=== PATIENT | male | born 1945 | race Caucasian/White ===

== ENCOUNTER → 2016-12-21 | Outpatient (CLI) | payer MEDICARE ==
[~2016-12-21] MED LIST: AMLO5TAB2 PO; ASPI325T PO; BISO5TAB2 PO; LEVO150T7 PO; LEVO200T4 PO; ZIAC10TA PO
--- NOTE | 2016-12-21 13:00 | ECGEPIP ---
Stationary ECG Study [facility] Test Date: 2016-12-21 Pat Name: REYMUNDO PEARL Department: Room: - Gender: M Truck Technician: : [id number] Requested By: BRENNA Jha Order Number: [id number] Reading MD: Jael Orozco Measurements Intervals [place] Rate: 61 P: 40 SC: 196 QRS: 28 QRSD: 94 T: 48 QT: 375 QTc: 380 Interpretive Statements SINUS RHYTHM Left atrial enlargement ANTERIOR STTCHANGES HAVE IMPROVED SOME C/W 04/23/[address]SO WITH INFER[address] ABN IMPROVED Electronically Signed On 12-21-2016 12:59:46 EDT by Jael Orozco
== END ==
LOC: M EKG 09:41
PROVIDERS: ATTEND Anesthesiology
DX: Z01.818 Encounter for other preprocedural examination (principal); I10 Essential (primary) hypertension

== ENCOUNTER → 2016-12-30 | Day surgery (SDC) | payer MEDICARE ==
[~2016-12-30] VITALS: Ht 180.3 cm; Wt 103.4 kg
[~2016-12-30] MED LIST changes: +LIDOCAINE 2% INJ 100 MG/5 ML SDV (FOR ANES.) As Ordered ONE; +LR 1,000 ML IV SCH; +METOCLOPRAMIDE INJ 10MG/2ML VIAL (J2765) IV PRN; +MIDAZOLAM INJ 2 MG/2 ML VIAL (J2250) As Ordered ONE; +MORPHINE 2 MG/ML 1ML SYRINGE IV PRN; +ONDANSETRON 4MG/2ML VIAL (J2405) As Ordered ONE; +ONDANSETRON 4MG/2ML VIAL (J2405) IV PRN; +PERCOCET 5MG/325MG TAB PO PRN; +PHENYLephrine HCL 500 MCG/5 ML (100MCG/ML) SYRINGE (J2370) As Ordered ONE; +PROPOFOL 200 MG/20 ML VIAL As Ordered ONE; +ceFAZolin 1GM INJ (J0690) As Ordered ONE; +ePHEDrine SULFATE 25 MG/5 ML(5MG/ML) SYRINGE As Ordered ONE; +fentaNYL 100 MCG/2 ML INJECTION (J3010) As Ordered ONE; +fentaNYL 100 MCG/2 ML INJECTION (J3010) IV PRN
--- NOTE | 2016-12-30 12:02 | REP ---
Left ankle intraoperative fluoroscopic views, two views: Two intraoperative fluoroscopic views are performed during a surgical fusion of the left ankle. Two orthopedic screws are seen across the tibiotalar articulation in satisfactory positions alignment on both views. There is joint space narrowing of the tibiotalar joint. Fluoroscopic exposure time is 1 minute 26 seconds. Fluoroscopic images are performed with last image hold technology. These images require no additional radiation. Signed by Stan Gee MD 12/30/2016 11:53 A
[2016-12-30 14:45] VITALS: BP 120/66
--- NOTE | 2016-12-31 13:59 | RO ---
DATE OF PROCEDURE: 12/30/2016 PREPROCEDURE DIAGNOSIS: Left ankle degenerative arthritis. POSTPROCEDURE DIAGNOSIS: Left ankle degenerative arthritis. PROCEDURE: Left ankle arthroscopic fusion. SURGEON: Dr. Chirag Alvarado VETERINARY TOXICOLOGIST: Mr. Zana Verduzco ANESTHESIA: Spinal with IV sedation. COMPLICATIONS: None. PROCEDURE: Antibiotics were given intravenously preoperatively and then a successful spinal anesthetic was induced. Tourniquet was placed on the left upper thigh and not inflated. Then the left lower extremity was carefully prepped and draped in the usual sterile fashion. A well leg valencia was utilized. After appropriate time out, I began the procedure by applying the ankle strap and then a Kerlix wrap around my waist for waist distraction. Small schultz were made at the anterior joint line medially and laterally. Then a small #11 blade was used just to incise the skin superficially, and then a hemostat utilized to spread the tissues so that it could enter the joint anteromedially. At first we had some difficulty getting into the joint, it was a very tight space, very arthritic ankle. Eventually, I was able to modify my portal to a distal position and was able to enter the joint. I then established an anterolateral portal again by making a small incision with an #11 blade, first localizing with a small 20-gauge needle, then spread with a hemostat. The scope was then placed through the anterolateral portal and we began working first with a shaver medially through the medial portal, debriding some synovitis. There was just a small amount of articular cartilage remaining throughout the entire joint, both on the tibial plafond and the tailor dome. It is denuded almost completely of articular cartilage except the far posterior aspect of the joint and the medial and lateral gutters. I first used the shaver to debride the synovium and any other debris. Some small ossific loose bodies were removed with the grasping forceps. Then I first worked along the medial gutter by using a combination of ring curettes, curved curettes, and the oval bur to debride the medial gutter and then the tibial plafond all the way posteriorly and then laterally, and then worked on the talar dome, again in a similar fashion, first in the medial gutter, then posteriorly, and then over laterally. His bone was very sclerotic and it was difficult to get bleeding bone despite using the bur even. Thus, I felt it best to do several microfracture type pick holes on both the tibial plafond and the talar dome, so I used the arthroscopy picks to make several pick holes in the tibial plafond and on the talar neck. Photographs were taken. Once I was satisfied that all the articular cartilage surface was removed and the medial gutter cleared, as well as the medial aspect of the distal fibula was cleared of any articular cartilage, I then brought in the fluoroscopic imaging and estimated a position for our first screw, which was going to be superior and medial. Once I was satisfied with the trajectory, I made a small pancho in the skin, spread with a hemostat, introduced the threaded guidepin from the cannulated screw set and drilled from medial superior to distal lateral into the talar, so it came out about the center portion of the talar dome. I did this and as the threaded guidepin crossed the ankle joint, I made sure that we estimated as best as possible that the ankle was in about neutral with slight external rotation and slight eversion alignment. Then the pin was driven across, measured, and then I drilled the near cortex and then introduced the short threaded 7.3 mm cannulated screws with excellent bite into the bone. This was a very good rock solid screw. I initially planned to put two medial parallel screws in, but I decided that there was not enough room unless I did a crisscross pattern. Thus, at this point, I made a small incision lateral, just in front of the fibula with an #11 blade, spread with a hemostat, and I introduced the threaded guide pin just over the anterior aspect of the fibula into the tibia. Then under fluoroscopic imaging, I drilled across trying to get as close as I could to what they call a home run screw, meeting down into the talar neck. Eventually, I was able to secure the threaded guide pin into the talar neck across the ankle joint, and then I drilled and placed a screw; however, it was so close to the other screw that it would not advance and I had to back the screw out and reposition the threaded guide pin more superiorly and then advanced again down the talar neck. This time, I avoided the other screw. Once I was satisfied with its position, I measured, drilled, and the bone was so sclerotic on the talus so I actually had to drill into the talus with a drill and then place the short threaded 7.3 cannulated screw with excellent bite and purchase once again. Fluoroscopic imaging in the AP, lateral and mortise planes showed that we appeared to have good position of the ankle and good position of the hardware. The tourniquet was released around this time and then I reintroduced the arthroscope into the joint. It was nicely coapted together and I introduced 5 mL of DBX bone graft through the anteromedial portal, visualizing anterolaterally, and then squirted it in through the cannula into the anterior aspect of the joint and applied pressure anteriorly to compress the bone graft material around the ankle joint. The wounds were then closed with #4-0 nylon sutures, covered by Adaptic dry, sterile, bulky dressing with a short leg, well padded, plaster cast applied. He was then transferred to the recovery room in stable condition. There were no intraoperative complications. Mr. Verduzco was critical to the success of this difficult operation, which took several hours to get everything lined up just the way we would like and helped to manipulate the knee, helped to handle the instruments, helped to place the cast, closed the wound, and prepared the patient, amongst many other tasks.
== END | disposition home or self-care (01) ==
LOC: M SDC 05:42
PROVIDERS: ATTEND Orthopaedic Surgery
DX: M19.072 Primary osteoarthritis, left ankle and foot (principal); I10 Essential (primary) hypertension; E03.9 Hypothyroidism, unspecified; T88.3XXD Malignant hyperthermia due to anesthesia, subsequent encounter; K44.9 Diaphragmatic hernia without obstruction or gangrene; Z88.8 Allergy status to other drugs, medicaments and biological substances; Z79.899 Other long term (current) drug therapy
CPT/HCPCS: 29899; 73610; 88304; C1762; C1776; J0690; J2250; J2370; J2405; J3010

== ENCOUNTER 2017-05-10 07:44 | Inpatient (IN) | payer MEDICARE ==
[~2017-05-10] VITALS: Ht 177.8 cm; Wt 105.0 kg
[~2017-05-10 07:44] MED LIST changes: -LIDOCAINE 2% INJ 100 MG/5 ML SDV (FOR ANES.) As Ordered ONE; -LR 1,000 ML IV SCH; -METOCLOPRAMIDE INJ 10MG/2ML VIAL (J2765) IV PRN; -MIDAZOLAM INJ 2 MG/2 ML VIAL (J2250) As Ordered ONE; -MORPHINE 2 MG/ML 1ML SYRINGE IV PRN; -ONDANSETRON 4MG/2ML VIAL (J2405) As Ordered ONE; -ONDANSETRON 4MG/2ML VIAL (J2405) IV PRN; -PERCOCET 5MG/325MG TAB PO PRN; -PHENYLephrine HCL 500 MCG/5 ML (100MCG/ML) SYRINGE (J2370) As Ordered ONE; -PROPOFOL 200 MG/20 ML VIAL As Ordered ONE; -ceFAZolin 1GM INJ (J0690) As Ordered ONE; -ePHEDrine SULFATE 25 MG/5 ML(5MG/ML) SYRINGE As Ordered ONE; -fentaNYL 100 MCG/2 ML INJECTION (J3010) As Ordered ONE; -fentaNYL 100 MCG/2 ML INJECTION (J3010) IV PRN
[2017-05-10] MEDS ORDERED: NS 1,000 ML IV SCH (08:25)
[2017-05-10] MEDS ORDERED: ONDANSETRON 4MG/2ML VIAL (J2405) IV ONE (08:30)
[2017-05-10] MEDS ORDERED: MORPHINE 4 MG/ML 1ML SYRINGE IV PRN ×2 (08:30→19:15)
[2017-05-10 08:41] LABS: BASO % 0.3 % (0.0-1.0); EOS % 0.1 % (0.0-3.0); IMMATURE GRANULOCYTE % 0.4 % (0-0); LYMPH # 0.6 10^3/uL (1.5-4.5); LYMPH % 4.5 % (24.0-44.0); MEAN CORPUSCULAR HEMOGLOBIN 30.9 pg (27.0-33.0); MEAN CORPUSCULAR HGB CONC 34.3 g/dl (32.0-36.5); MEAN CORPUSCULAR VOLUME 90.1 fl (80.0-96.0); MONO # 0.7 10^3/uL (0.0-0.8); MONO % 4.9 % (0.0-5.0); NEUTROPHILS # 11.9 10^3/uL (1.8-7.7); NEUTROPHILS % 89.8 % (36.0-66.0); PLATELET COUNT, AUTOMATED 182 10^3/uL (150-450); WHITE BLOOD COUNT 13.2 10^3/uL (4.0-10.0)
[2017-05-10 08:51] LABS: ADD MANUAL DIFFER NO; DIFF SLIDE NUMBER 121
--- NOTE | 2017-05-10 08:57 | REP ---
Acute abdominal series series including PA chest and supine upright abdomen: PA chest: Comparison is 04/23/2016. Lung amaya are clear and unchanged. Cardiac size is upper normal, unchanged. The comfort, mediastinum, and bony thorax are unremarkable. There is no free subdiaphragmatic air. Impression: Essentially negative PA chest. There is no interval change. Abdomen, supine upright views: The multiple air-fluid levels identified in nondilated bowel loops on the previous upright view have resolved. The bowel gas pattern is now normal. There are no calcifications. Skeletal structures and soft tissues are otherwise unremarkable. There is degenerative disc disease and scoliosis of the lumbar spine, unchanged. Impression: Normal bowel gas pattern. Signed by Stan Gee MD 05/10/2017 08:48 A
[2017-05-10 09:04] LABS: ALBUMIN 3.6 GM/DL (3.2-5.2); ALBUMIN/GLOBULIN RATIO 0.82 (1.00-1.93); BILIRUBIN,DIRECT 0.2 MG/DL (0.0-0.2); BILIRUBIN,TOTAL 0.7 MG/DL (0.2-1.0); CALCIUM LEVEL 9.2 MG/DL (8.8-10.2); CREATININE FOR GFR 1.58 MG/DL (0.70-1.30); GLOMERULAR FILTRATION RATE 46.1 (>42); POTASSIUM SERUM 3.6 MEQ/L (3.5-5.1)
[2017-05-10] MEDS ORDERED: PIPERACILLIN/TAZOBACTAM SOD 3.375 GM in D5W 50 ML IV ONE (09:30)
[2017-05-10] MEDS ORDERED: GASTROGRAFIN SOLUTION 30ML (Q9963) As Ordered ONE (09:31)
[2017-05-10] MEDS ORDERED: GASTROGRAFIN SOLUTION 30ML PO ONE (09:40)
[2017-05-10] MEDS ORDERED: GASTROGRAFIN SOLUTION 30ML (Q9963) PO ONE (10:10)
--- NOTE | 2017-05-10 12:01 | REP ---
CT abdomen and pelvis without IV but with oral contrast. History: Diverticulitis. Rule out abscess. Lower abdominal pain. Comparison CT study April 23, 2016. Findings: Preliminary digital patient portal concierge radiograph shows an unremarkable bowel gas pattern. The lung bases are essentially clear. Free intraperitoneal air is noted extending into the upper abdomen. Small bubbles of free intraperitoneal air are dispersed in the mid abdomen as well mostly to the right of midline indicating a perforation of hollow viscus. In the sigmoid colon, there is fairly extensive mural thickening and jimmy colonic fat streaking. There is some non-containing pericolonic gas here as well and this is felt to be the origin of the perforation due to sigmoid colon diverticulitis. No abscess is seen. The appendix is not confidently visualized, but there is no inflammation adjacent to the cecum or ileocecal valve to suggest appendicitis. There are granulomatous calcifications scattered in the liver and spleen. There are cysts in each kidney which are unchanged. There is a small cyst in the left lobe of the liver which is also unchanged. The aorta is tortuous as before. No other new finding. Impression: Free intraperitoneal air dispersed from a diverticulitis in the sigmoid colon. Free air is seen scattered in the right abdomen up to the right upper quadrant and just beneath the right hemidiaphragm. No abscess is seen. Findings were discussed by telephone with at the time of this dictation. Signed by Walter Connelly MD 05/10/2017 03:05 P
[2017-05-10] MEDS ORDERED: PROPOFOL 200 MG/20 ML VIAL As Ordered ONE ×6 (13:52→18:24)
[2017-05-10] MEDS ORDERED: ROCURONIUM BROMIDE 50 MG/5 ML VIAL/SYRINGE As Ordered ONE (13:52)
[2017-05-10] MEDS ORDERED: LIDOCAINE 2% INJ 100 MG/5 ML SDV (FOR ANES.) As Ordered ONE (13:52)
[2017-05-10] MEDS ORDERED: REMIFENTANIL 1MG 3ML VIAL As Ordered ONE ×3 (13:52→16:17)
[2017-05-10] MEDS ORDERED: MIDAZOLAM INJ 2 MG/2 ML VIAL (J2250) As Ordered ONE (13:53)
[2017-05-10] MEDS ORDERED: fentaNYL 100 MCG/2 ML INJECTION (J3010) As Ordered ONE (13:53)
[2017-05-10] MEDS ORDERED: BUPIVACAINE HCL 0.25% 30 ML VIAL As Ordered ONE (14:05)
[2017-05-10] MEDS ORDERED: PROPOFOL 500 MG/50 ML VIAL As Ordered ONE ×2 (14:18→17:06)
[2017-05-10] MEDS ORDERED: ePHEDrine SULFATE 25 MG/5 ML(5MG/ML) SYRINGE As Ordered ONE ×2 (14:46→15:08)
[2017-05-10] MEDS ORDERED: PHENYLephrine HCL 500 MCG/5 ML (100MCG/ML) SYRINGE (J2370) As Ordered ONE ×3 (14:46→15:08)
[2017-05-10] MEDS ORDERED: ZOSYN 3.375 GM VIAL (J2543) As Ordered ONE (15:01)
[2017-05-10] MEDS ORDERED: VECURONIUM BROMIDE 10 MG VIAL As Ordered ONE (16:35)
[2017-05-10] MEDS ORDERED: HYDROmorphone HCL 2 MG/ML 1ML VIAL (J1170) As Ordered ONE (17:22)
[2017-05-10] MEDS ORDERED: ONDANSETRON 4MG/2ML VIAL (J2405) As Ordered ONE (17:25)
[2017-05-10] MEDS ORDERED: GLYCOPYRROLATE INJ 0.2 MG/ML 2 ML VIAL As Ordered ONE (18:06)
[2017-05-10] MEDS ORDERED: NEOSTIGMINE 10 MG/10 ML VIAL (J2710) As Ordered ONE (18:07)
[2017-05-10] MEDS ORDERED: MORPHINE 2 MG/ML 1ML SYRINGE IV PRN (19:15)
[2017-05-10] MEDS ORDERED: ONDANSETRON 4MG/2ML VIAL (J2405) IV PRN ×2 (19:15→20:45)
[2017-05-10] MEDS ORDERED: MEPERIDINE INJ 25 MG/ML VIAL (J2175) IV PRN ×2 (19:15→20:45)
[2017-05-10] MEDS ORDERED: PERCOCET 5MG/325MG TAB PO PRN ×2 (19:15→20:45)
[2017-05-10] MEDS ORDERED: ACETAMINOPHEN TAB 650MG DOSE (2X325MG) PO PRN (19:15)
[2017-05-10] MEDS ORDERED: fentaNYL 100 MCG/2 ML INJECTION (J3010) IV PRN ×2 (19:15→20:45)
[2017-05-10] MEDS ORDERED: LR 1,000 ML IV SCH ×2 (19:15→20:45)
[2017-05-10] MEDS ORDERED: METOCLOPRAMIDE INJ 10MG/2ML VIAL (J2765) IV PRN ×3 (19:15→20:45)
[2017-05-10 19:47] VITALS: BP 134/77
[2017-05-10 20:17] VITALS: BP 124/63
[2017-05-10] MEDS: DOCUSATE SODIUM 100 MG CAP PO SCH (20:32)
[2017-05-10] MEDS: ALVIMOPAN 12 MG CAPSULE (ENTEREG) PO SCH (20:32)
[2017-05-10] MEDS: LR 1,000 ML IV SCH (20:32)
[2017-05-10] MEDS: BISOPROLOL FUMARATE 5 MG TAB PO SCH (20:33)
[2017-05-10] MEDS: KETOROLAC 30 MG/ML VIAL (J1885) IV SCH (20:33)
[2017-05-10] MEDS: PIPERACILLIN/TAZOBACTAM SOD 3.375 GM in D5W 50 ML IV SCH (20:33)
[2017-05-10 21:17] VITALS: BP 118/58
[2017-05-10 22:17] VITALS: BP 117/61
[2017-05-10 23:17] VITALS: BP 115/69
[2017-05-11] VITALS (7 sets, daily range): BP systolic 103–135; BP diastolic 62–72
[2017-05-11] MEDS: PIPERACILLIN/TAZOBACTAM SOD 3.375 GM in D5W 50 ML IV SCH ×4 (02:21→20:31)
[2017-05-11] MEDS: KETOROLAC 30 MG/ML VIAL (J1885) IV SCH ×4 (02:21→20:31)
[2017-05-11] MEDS: LR 1,000 ML IV SCH ×2 (04:32→13:39)
[2017-05-11] MEDS: LEVOTHYROXINE 100MCG TABLET (0.1MG) PO SCH (05:56)
[2017-05-11 07:00] LABS: BASO % 0.4 % (0.0-1.0); EOS % 0.4 % (0.0-3.0); IMMATURE GRANULOCYTE % 0.4 % (0-0); LYMPH # 0.6 10^3/uL (1.5-4.5); LYMPH % 7.9 % (24.0-44.0); MEAN CORPUSCULAR HGB CONC 32.6 g/dl (32.0-36.5); MONO # 0.4 10^3/uL (0.0-0.8); MONO % 4.6 % (0.0-5.0); NEUTROPHILS # 6.8 10^3/uL (1.8-7.7); NEUTROPHILS % 86.3 % (36.0-66.0); PLATELET COUNT, AUTOMATED 112 10^3/uL (150-450); RED CELL DISTRIBUTION WIDTH 13.4 % (11.5-14.5); WHITE BLOOD COUNT 7.8 10^3/uL (4.0-10.0)
[2017-05-11 07:21] LABS: CALCIUM LEVEL 8.1 MG/DL (8.8-10.2); CREATININE FOR GFR 1.6 MG/DL (0.70-1.30); GLOMERULAR FILTRATION RATE 45.5 (>42); POTASSIUM SERUM 3.9 MEQ/L (3.5-5.1)
[2017-05-11] MEDS: ALVIMOPAN 12 MG CAPSULE (ENTEREG) PO SCH ×2 (09:00→20:30)
[2017-05-11] MEDS: DOCUSATE SODIUM 100 MG CAP PO SCH ×2 (09:00→20:30)
[2017-05-11] MEDS: amLODIPine 5 MG TAB PO SCH (09:03)
[2017-05-11] MEDS: ENOXAPARIN 40 MG/0.4 ML SYRINGE (J1650) SC SCH (09:03)
[2017-05-11] MEDS ORDERED: NORCO, ANEXSIA 5/325MG TABLET (HYDROcodone/ACETAMINOPHEN) PO PRN (15:30)
--- NOTE | 2017-05-11 17:27 | IPN ---
DATE: 05/11/2017 The patient is now postoperative day #1 from his laparoscopic sigmoid colectomy and end colostomy for perforated sigmoid diverticulitis. He has done well overnight. He remains on Zosyn 3.375 grams intravenous (IV) every 6 hours. Vital signs show that he had remained afebrile since surgery yesterday evening. His pulse remains in the 60s to 70s since last evening. Intake and output show yesterday 3100 in with 1100 out. He has had 300 mL of urine output overnight. The patient reports that he has a little nausea but no vomiting. He has some soreness in his lower abdomen but denies any real pain, and he has not been taking any pain medication other than some scheduled Toradol every 6 hours. PHYSICAL EXAMINATION: Shows that the patient appears to be fairly comfortable. Skin is warm and dry. Heart exam shows a regular rate and rhythm, and he is not tachycardiac. The lungs are clear. The abdomen is perhaps mildly protuberant. He has a small stain of old blood on the dressing on the trocar site in the right lower quadrant, and the other dressings are dry and clean. He has bowel sounds present. The ostomy is viable. He has a small amount of blood around the inferior aspect of the stoma within the ostomy appliance. There is also a small amount of liquid stool within the ostomy bag. Laboratory studies this morning show white count of 7.8 with a hemoglobin of 12, hematocrit of 37, and platelet count of 112,000. Differential count shows 86% neutrophils and 8% lymphocytes. Chemistry profile shows normal electrolytes with a BUN of 22, creatinine 1.6, which is in line with his baseline. His glucose is 93. The patient appears to be doing very well now on postoperative day #1 from his bowel resection with end colostomy for a perforated sigmoid diverticulitis. He denies significant pain. His vital signs are stable and he is afebrile. His white blood cell count is normal, though his differential shows a preponderance of neutrophils. He has had a little nausea but no vomiting. PLAN: The patient will be started on a clear liquid diet. We will decrease his IV fluids to 50 mL per hour. Zosyn will be continued. The Vásquez catheter will be removed today. I did discuss with him that given his history of nocturia times two every night that he may have some prostate issues that would lead to voiding problem or even urinary retention. We will need to monitor this after his Vásquez is discontinued. I encouraged the patient to be up out of bed walking in the hallway at least three times per day. We will begin ostomy training. I would anticipate that the patient might be ready for discharge within the next 5-7 days. AMELIAD
--- NOTE | 2017-05-11 18:09 | HPE ---
DATE OF ADMISSION: 05/10/2017 ADMISSION DIAGNOSIS: Perforated sigmoid diverticulum with free air. HISTORY OF PRESENT ILLNESS: The patient is a very pleasant 71-year-old man who presented to the emergency department on the morning of 05/10/2017, complaining of progressively worsening lower abdominal and pelvic pain. The patient reported that he had noted some onset of discomfort on the afternoon of 05/09/2017. He tried taking some aspirin and this was of little benefit. He did have a bowel movement later in the day which seemed to provide some relief but he then noticed progressive worsening discomfort. He did not have any definite fever or chills. He complained of pressure low in the abdomen as well as some rectal pressure. He had some mild nausea. The pain became more severe on the morning of 05/10/2017, any he presented for evaluation. He was found to have significant tenderness in the lower abdomen anteriorly. He had some blood work that showed a mild elevation of his white blood cell count and then underwent a CT scan of the abdomen and pelvis. This showed some bubbles of free air up about the liver and then tracking down through the mid abdomen with some air bubbles around the sigmoid colon. The sigmoid colon appeared markedly inflamed and thickened and there appeared to be some free fluid in the pelvis. The picture was felt to be consistent with perforated diverticulitis and I was consulted to evaluate the patient. He is now admitted for further treatment. 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 He has had several operations without significant reaction with appropriate precautions. SURGICAL HISTORY: Is significant for a tonsillectomy in the distant past. 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 He had a right inguinal hernia repair back in 2010. He has subsequently had bilateral ankle fusions for arthritis. MEDICAL HISTORY: Significant for hypertension and hypothyroidism. FAMILY HISTORY: Noncontributory. SOCIAL HISTORY: The patient is a nonsmoker and denies any significant alcohol use. REVIEW OF SYSTEMS: Shows no history of seizure or stroke. He denies any chest pain or palpitations. He has no shortness of breath, wheezing or cough or sputum production. He has not had any prior similar episodes of abdominal pain. He does report having had a colonoscopy perhaps some 5-6 years ago in [place] at which time he was identified as having diverticulosis. I do not have a report of this study. He does report nocturia times two but reports that he voids without any significant problems that he can identify. He has not seen a urologist about prostate issues. He has no history of DVT or pulmonary embolus. He does have a history of osteoarthritis but is not having any specific complaints at present. PHYSICAL EXAMINATION: In the emergency department showed that his most recent temperature at that time was approximately 100 degrees. His pulse was approximately 80 with a blood pressure of 116/60 and his oxygen saturation was good on room air. Examination shows the skin to be warm and dry. The patient is alert, oriented and cooperative. Sclerae are anicteric. Mucous membranes appear moist. Neck shows no cervical bruit and there is no palpable mass or adenopathy. Heart exam shows a regular rate and rhythm without definite murmur. The lungs are clear to auscultation bilaterally. The abdomen is perhaps very mildly protuberant. He does have bowel sounds present which are more pronounced in the upper abdomen than the lower. There is tenderness to percussion, particularly in the suprapubic area on the right and to a lesser extent on the left. With palpation he has moderate to marked direct tenderness to palpation low in the abdomen, primarily centrally. The upper quadrants are relatively benign and soft. There is no evident hernia. Lower extremities show strong dorsalis pedis pulses bilaterally with no peripheral edema. His laboratory studies show normal electrolytes with a BUN of 26 and a creatinine of 1.58 and glucose of 129. His liver function tests were all normal with a total protein of 8 with an albumin of 3.6. His lipase is normal at 139. A CBC showed a white count of 13,000 with a hemoglobin of 15, hematocrit 45 and platelet count 182,000. His differential shows 90% neutrophils and 4% lymphocytes and 5% monocytes. The CT scan as noted in the history of present illness shows some extensive thickening and inflammation in the sigmoid colon with some bubbles of free air adjacent to the sigmoid colon as well as some free fluid. There were bubbles of free air in the upper abdomen as well. A definite abscess was not seen. He was noted to have diverticulosis of the descending and sigmoid colons. IMPRESSION: 1. Perforated sigmoid diverticulitis with free air. 2. Hypothyroidism. 3. Hypertension. PLAN: The patient was counseled that he has convincing evidence for a perforation of his colon and that this leads readily to development of peritonitis. He has some significant tenderness in his lower abdomen. His white blood cell count is mildly elevated with a left shift. I have recommended to the patient that we treat him with antibiotics and proceed to surgery. I advised him that the usual approach to this problem is to perform a colon resection but not to perform an anastomosis, but to leave him with a temporary colostomy. Once he has healed for a few months, it would then be possible to consider a second procedure to take down his colostomy. I did advise him that if the contamination was minimal it might be possible to consider an anastomosis, though I thought this would be unlikely. He was counseled regarding the risks of the surgery, including but not limited to bleeding, infection, scarring, adverse drug reaction, need for further surgery, injury of an internal organ, and development of a hernia. He had an opportunity to ask questions. He desires to proceed. He has received 3.375 grams of Zosyn in the emergency department. This will be continued on an every 6 hour basis and he will be taken to the operating room for surgery as soon as the OR opportunity presents itself. I did advise him that we could attempt this laparoscopically, though we might very well need to convert to an open procedure. EZEQUIEL
[2017-05-11] MEDS: BISOPROLOL FUMARATE 5 MG TAB PO SCH (20:30)
[2017-05-12] MEDS: ONDANSETRON 4MG/2ML VIAL (J2405) IV PRN (00:41)
[2017-05-12] MEDS: PIPERACILLIN/TAZOBACTAM SOD 3.375 GM in D5W 50 ML IV SCH ×4 (02:10→21:31)
[2017-05-12] MEDS: KETOROLAC 30 MG/ML VIAL (J1885) IV SCH (02:10)
[2017-05-12 06:00] VITALS: BP 137/66
[2017-05-12] MEDS: LEVOTHYROXINE 100MCG TABLET (0.1MG) PO SCH (06:06)
--- NOTE | 2017-05-12 06:10 | RO ---
DATE OF PROCEDURE: 05/10/2017 PREOPERATIVE DIAGNOSIS: Perforated sigmoid diverticulum. POSTOPERATIVE DIAGNOSIS: Sigmoid diverticulitis with perforation and developing pelvic abscess. PROCEDURE PERFORMED: Laparoscopic sigmoid colectomy with an end sigmoid colostomy. SURGEON: Dr. Taylor CEMENT FINISHER: Dr. Tiffanie Ceron ANESTHESIA: General. INDICATIONS FOR THE PROCEDURE: The patient is a 71-year-old man who presented to the emergency department with a roughly 1 day history of worsening abdominal pain primarily low down in the pelvis with some discomfort in the rectal area as well. His examination showed marked tenderness low in the abdomen and laboratories showed a mild elevation of his white count and a CT showed some bubbles of free air into the upper abdomen and along the right side of the sigmoid colon, which showed marked inflammation with some free fluid. The picture was felt to be consistent with perforated diverticulum with developing peritonitis and he is now for laparoscopy, possible laparotomy, with bowel resection and probable colostomy. OPERATIVE PROCEDURE: The patient was taken to the operating room where he was placed under general endotracheal anesthesia. A Vásquez catheter was inserted. Thromboembolism deterrents (TEDs) and sequential were utilized. He was moved into a low lithotomy position with his legs supported in padded leg holders. The patient's abdomen was prepped and draped in a sterile fashion. 0.25% Marcaine was infiltrated just above the umbilicus and a short midline incision was made and deepened through the fascia. The peritoneum was opened bluntly and a Bryon cannula was inserted without difficulty. The abdomen was insufflated with carbon dioxide gas. A laparoscopic was placed. Initial examination showed no significant inflammation in the upper abdomen. There were a few adhesions between the proximal descending colon and the abdominal wall. There was abundant fibrofatty tissue noted within the abdomen. The liver was noted and appeared normal. Visualized loops of the small bowel in the lower abdomen appeared normal as well. The sigmoid colon appeared perhaps somewhat thickened and diverticulosis was noted. On initial exam, there was not any obvious inflammatory change noted. A 5 mm trocar was placed in the right midabdomen approximately at the level of the umbilicus and a second 5 mm trocar was placed in the right lower quadrant more lateral. Graspers were inserted. The patient was tilted to a Trendelenburg position. The small bowel was elevated up out of the lower abdomen. Some adhesions of the lateral aspect of the sigmoid colon were divided using the Harmonic scalpel. The adhesions in the left upper quadrant that had been noted were also divided. Some dissection of the lateral attachments of the distal half of the descending colon was also performed with mobilization of the descending colon medially. As dissection then was carried distally and some filmy adhesions and inflammatory adhesions of the sigmoid colon anteriorly were broken open, it was clear that there was marked inflammation and edema of the mid to distal sigmoid colon. There were some exudate noted and as some of these inflamed areas were probed there was drainage of some pus from the pelvis from around the left side of the colon and also from the right. All of this inflammatory debris was irrigated with a suction police communications dispatcher with care to try not to spread this contamination further within the abdomen. It was clear that the distal rectum was without evidence of inflammation other than some surface contamination. The mid to distal sigmoid colon was quite thickened and edematous and inflamed. A definite perforation was not identified by inspection. I elected to proceed with resection of the sigmoid colon. I elected to divide the sigmoid colon proximally initially and then to continue the dissection distally beneath the inflamed segment. Therefore, a site was selected for division of the colon proximally where the bowel was without evident acute inflammation. An opening was created through the sigmoid mesentery using the Harmonic scalpel and the colon was divided with a firing of a green load of the Cave-In-Rock stapler. Then, using the Harmonic scalpel, dissection proceeded distally. As this was not a cancer operation, the dissection proceeded close to the wall of the colon rather than in an attempt to do a full mesenteric resection. Blood vessels were identified and thoroughly cauterized with the Harmonic scalpel as dissection proceeded. Once the dissection had proceeded distal to the inflamed area of the sigmoid, the mesenteric tissues were divided close to the wall of the bowel approximately at the rectosigmoid. This portion of bowel was then also divided with a green load of the Cave-In-Rock stapler. There was no significant bleeding at the staple line. This appeared to be well approximated. The pelvis was irrigated and there was no evidence of bleeding and it appeared that the inflammatory debris had been nicely removed with irrigation. The specimen was left in the pelvis initially. A few attachments of the proximal sigmoid colon were divided to ensure that there would be adequate length for creation of a colostomy. The specimen and the end of the sigmoid colon were then grasped with graspers through the right lower quadrant ports. The abdomen was deflated and the supraumbilical incision was extended inferiorly around the right side of the umbilicus to create an opening to deliver the specimen. This was extended to perhaps 6-7 cm. A small Morgan self-retaining retractor was placed. Initial attempt to deliver the specimen was unsuccessful and necessitated extending the incision slightly further inferiorly. The specimen was then removed and amounted to an approximately 12-15 cm length of inflamed colon. This was sent for permanent pathology. The end of the colon was then delivered through the wound. The distal few centimeters appeared to be slightly dusky. Some fibrofatty tags along the border of the colon were excised with care to preserve the blood supply of the mesentery. Hemostasis was ensured with judicious use of the cautery. There was excellent length of the bowel to perform a colostomy. I selected a site in the left lower quadrant approximately 5 cm below the level of the umbilicus. A small disc of skin approximately 2-1/2-3 cm in diameter was excised. The subcutaneous fat was opened with the cautery and a longitudinal incision was made in the anterior aspect of the rectus sheath. The rectus muscle fibers were spread and an opening was created through the posterior aspect of the sheath also in longitudinal orientation. The end of the bowel was reduced into the abdomen and then delivered through the left lower quadrant ostomy site. This was left in place. The Morgan retractor was then removed. The surgical team all changed gown and gloves and we moved to use of a closing tray. The midline incision was closed with interrupted simple sutures of #1 Vicryl to close the fascia. The abdomen was then reinflated and the pelvis was inspected. There was no evidence of any significant bleeding and this area was irrigated further. The lateral right lower quadrant trocar had been converted from a 5 to a 12 to allow use of the Cave-In-Rock stapler and this was now removed and the inner layer of peritoneum and fascia was closed with a single suture of Vicryl using the Endoclose device. The single remaining trocar at the right midabdomen was used to vent any remaining gas from the abdomen and was then removed. The three skin incisions were then closed with buried Vicryl sutures. These incisions were then covered with sterile gauze. I then proceeded to mature the ostomy. Approximately 3-4 cm of colon was excised from the end of the sigmoid using the cautery. The ostomy was then matured by placing four corner sutures of #3-0 Vicryl to timoteo the bowel. It was necessary to place a small slit in the end of the bowel inferiorly to allow this to be everted. Multiple additional sutures of #3-0 Vicryl were then placed to complete the suturing of the end of the bowel to the skin edge. The bowel appeared to be well vascularized. An ostomy appliance was applied over the end of the colostomy. Steri-Strips were applied to the skin incisions followed by sterile dressings. The patient tolerated the procedure well without apparent complication. He was awakened in the operating room, extubated and moved to the recovery room in stable condition. EZEQUIEL
[2017-05-12] MEDS ORDERED: IBUPROFEN 400 MG TAB PO PRN (08:00)
[2017-05-12] MEDS: ALVIMOPAN 12 MG CAPSULE (ENTEREG) PO SCH ×2 (08:44→21:32)
[2017-05-12] MEDS: ENOXAPARIN 40 MG/0.4 ML SYRINGE (J1650) SC SCH (08:44)
[2017-05-12] MEDS: amLODIPine 5 MG TAB PO SCH (08:45)
[2017-05-12] MEDS: DOCUSATE SODIUM 100 MG CAP PO SCH ×2 (08:45→21:31)
[2017-05-12 14:00] VITALS: BP 133/75
[2017-05-12] MEDS: BISOPROLOL FUMARATE 5 MG TAB PO SCH (21:31)
[2017-05-12 22:00] VITALS: BP 117/66
[2017-05-13] MEDS: ONDANSETRON 4MG/2ML VIAL (J2405) IV PRN (00:10)
[2017-05-13] MEDS: PIPERACILLIN/TAZOBACTAM SOD 3.375 GM in D5W 50 ML IV SCH ×4 (02:20→20:30)
[2017-05-13 06:00] VITALS: BP 117/68
[2017-05-13] MEDS: LEVOTHYROXINE 100MCG TABLET (0.1MG) PO SCH (06:11)
[2017-05-13 07:14] LABS: BASO % 0.4 % (0.0-1.0); EOS # 0.3 10^3/uL (0.0-0.50); EOS % 4.3 % (0.0-3.0); IMMATURE GRANULOCYTE % 0.4 % (0-0); LYMPH % 12.5 % (24.0-44.0); MEAN CORPUSCULAR HEMOGLOBIN 30.6 pg (27.0-33.0); MEAN CORPUSCULAR VOLUME 92.9 fl (80.0-96.0); MONO # 0.5 10^3/uL (0.0-0.8); NEUTROPHILS # 5.8 10^3/uL (1.8-7.7); NEUTROPHILS % 76.4 % (36.0-66.0); PLATELET COUNT, AUTOMATED 176 10^3/uL (150-450); RED CELL DISTRIBUTION WIDTH 13.2 % (11.5-14.5); WHITE BLOOD COUNT 7.6 10^3/uL (4.0-10.0)
[2017-05-13] MEDS: ALVIMOPAN 12 MG CAPSULE (ENTEREG) PO SCH ×2 (08:57→20:30)
[2017-05-13] MEDS: amLODIPine 5 MG TAB PO SCH (09:00)
[2017-05-13] MEDS: DOCUSATE SODIUM 100 MG CAP PO SCH ×2 (09:00→20:30)
[2017-05-13] MEDS: ENOXAPARIN 40 MG/0.4 ML SYRINGE (J1650) SC SCH (09:01)
[2017-05-13] MEDS: HYDROCHLOROthiazide 6.25MG PER 1/4TAB PO SCH (13:52)
[2017-05-13 14:00] VITALS: BP 121/70
--- NOTE | 2017-05-13 18:34 | IPN ---
DATE: 05/13/2017 The patient is now postop day #3 from a laparoscopic sigmoid colectomy for perforated sigmoid diverticulitis. He has been doing well over the past 24 hours. Vital signs show him to be afebrile. He denies any nausea, though does report that he gets some heartburn symptoms at bedtime and into the night and usually takes a dose of Mylanta when he goes to bed. He has been working to learn some colostomy care. He has been up to ambulate and has been voiding without difficulty. He is eating well. Vital signs: This morning the patient is 98.5 with a pulse of 64, respirations of 17 and blood pressure of 117/68. Room air pulse oximetry is normal. Intake and output shows good oral intake, and he had a urine output of greater than 800 overnight into this morning. PHYSICAL EXAMINATION: The patient is alert and oriented. He does not appear to be uncomfortable. Heart exam shows a regular rate and rhythm. The lungs are clear to auscultation. The abdomen is flat. He has some bowel sounds present. The ostomy has some stool within the bag. The ostomy itself appears slightly dark but viable, and there does not appear to be any blood in the bag today. His incisions are clean with no sign of infection. LABORATORY STUDIES: The patient had a CBC this morning that showed a white count of 7.6, hemoglobin 12, hematocrit 38 and a platelet count of 176,000. Differential count showed 76% neutrophils and 12% lymphocytes. Pathology confirmed a portion of sigmoid colon with extensive diverticulosis and diverticulitis as well as a prior perforation. IMPRESSION: He is doing very well, now postop day #3 from laparoscopic sigmoid colectomy with colostomy. PLAN: The patient will continue on his regular diet. I will speak with nursing about continuing his ostomy teaching with an eye toward changing his ostomy appliance and preparing him for discharge within the next day or two. I will order him a nightly dose of Mylanta at his request. I will restart the small dose of hydrochlorothiazide that he had usually been on. He will be allowed to shower ad ina. I would hope that he would be discharged in the next day or two if we can make proper arrangements for his ostomy care. EZEQUIEL
[2017-05-13] MEDS: MAALOX 30 ML SUSP *UDC PO SCH (20:30)
[2017-05-13] MEDS: BISOPROLOL FUMARATE 5 MG TAB PO SCH (20:30)
[2017-05-13 22:00] VITALS: BP 121/83
[2017-05-14 02:00] VITALS: BP 133/74
[2017-05-14] MEDS: PIPERACILLIN/TAZOBACTAM SOD 3.375 GM in D5W 50 ML IV SCH ×4 (02:16→20:06)
[2017-05-14] MEDS: LEVOTHYROXINE 100MCG TABLET (0.1MG) PO SCH (05:44)
[2017-05-14 06:00] VITALS: BP 122/75
[2017-05-14] MEDS: ALVIMOPAN 12 MG CAPSULE (ENTEREG) PO SCH (07:50)
[2017-05-14] MEDS: HYDROCHLOROthiazide 6.25MG PER 1/4TAB PO SCH (07:50)
[2017-05-14] MEDS: DOCUSATE SODIUM 100 MG CAP PO SCH ×2 (07:50→20:06)
[2017-05-14] MEDS: amLODIPine 5 MG TAB PO SCH (07:55)
[2017-05-14] MEDS: ENOXAPARIN 40 MG/0.4 ML SYRINGE (J1650) SC SCH (07:58)
[2017-05-14 10:00] VITALS: BP 128/74
--- NOTE | 2017-05-14 13:19 | IPN ---
DATE: 05/14/2017 The patient is now 4 days postoperative from his sigmoid colectomy and colostomy for perforated sigmoid diverticulitis. He has remained afebrile for the last 24 hours. He is taking a diet well and his colostomy is functioning well. He has been working on training for his ostomy care, but has not yet changed the wafer and I discussed this with the nurse, that he must accomplish this before he can be discharged. Otherwise, he seems to be ready to go home effective tomorrow when he will have completed 5 days worth of IV antibiotics. VITAL SIGNS: The patient's temperature has been afebrile. His pulse is 60-78 and his respiratory rate is normal. Blood pressure is fine and his room air oxygen saturations are in the mid to high 90s. His intake yesterday showed 1430 and 1825 out. PHYSICAL EXAMINATION: Reveals a pleasant man lying quietly in bed. He is alert and oriented. Heart exam shows a regular rhythm. The lungs are clear. The abdomen is flat. His three incisions are healing nicely with no sign of infection. His ostomy remains somewhat edematous and dark maroon in color, but is clearly viable. There is stool in the bag and he has active bowel sounds. IMPRESSION: Excellent postoperative result from sigmoid colectomy for perforated diverticulitis. PLAN: We will plan on discharging the patient on 05/15/2017. He will continue his ostomy training today and must change his appliance completely today. I have written prescriptions for his ostomy supplies and signed a request for a visiting nurse. The patient was counseled regarding his diet and activity levels. I will plan on seeing him back in about [address] Dudley is quality controller this weekend and will have a final say on whether the patient is ready for discharge. I would anticipate just stopping the Zosyn prior to discharge as he will have finished 5 days and has had no signs of infection since surgery. EZEQUIEL
[2017-05-14 14:00] VITALS: BP 138/67
[2017-05-14 18:00] VITALS: BP 123/66
[2017-05-14] MEDS: MAALOX 30 ML SUSP *UDC PO SCH (20:06)
[2017-05-14] MEDS: BISOPROLOL FUMARATE 5 MG TAB PO SCH (20:09)
[2017-05-14 22:00] VITALS: BP 123/69
[2017-05-15 02:00] VITALS: BP 129/72
[2017-05-15] MEDS: PIPERACILLIN/TAZOBACTAM SOD 3.375 GM in D5W 50 ML IV SCH ×2 (02:00→09:39)
[2017-05-15 06:00] VITALS: BP 131/77
[2017-05-15] MEDS: LEVOTHYROXINE 100MCG TABLET (0.1MG) PO SCH (06:20)
[2017-05-15] MEDS: DOCUSATE SODIUM 100 MG CAP PO SCH (09:39)
[2017-05-15] MEDS: HYDROCHLOROthiazide 6.25MG PER 1/4TAB PO SCH (09:39)
[2017-05-15] MEDS: ENOXAPARIN 40 MG/0.4 ML SYRINGE (J1650) SC SCH (09:39)
[2017-05-15 09:42] VITALS: BP 133/81
[2017-05-15] MEDS: amLODIPine 5 MG TAB PO SCH (09:42)
--- NOTE | 2017-06-09 17:24 | DSES ---
DATE OF ADMISSION: 05/10/2017 DATE OF DISCHARGE: 05/15/2017 ADMITTING DIAGNOSIS: Perforated sigmoid diverticulum with free air. HISTORY OF PRESENT ILLNESS: Patient is a 71-year-old man who presented to the emergency department complaining of progressive worsening of lower abdominal and pelvic pain. Patient reported that he had noticed onset of discomfort on the afternoon of 05/09/2017. His discomfort persisted and he noted some pressure low in the abdomen, as well as some rectal pressure. The pain became more severe on the morning of and he presented for evaluation. He was found to have an elevated white blood cell count and a CT scan of the abdomen and pelvis showed some bubbles of free air up around the liver and then tracking down through the mid abdomen with some air bubbles around the sigmoid colon. Sigmoid colon appeared markedly inflamed and thickened. There was some free fluid noted in the pelvis. His clinical picture was felt to be consistent with perforated diverticulitis and I was consulted. The patient was admitted for further treatment. Other medical issues include a muscle biopsy positive for malignant hyperthermia. He has hypertension and hypothyroidism. HOSPITAL COURSE: Patient was admitted to the hospital and started on intravenous antibiotics. He was taken to the operating room where he underwent a laparoscopic sigmoid colectomy with an end sigmoid colostomy and oversewing of the rectosigmoid stump. Postoperatively he did very well. He had evidence of some peritonitis, particularly within the pelvis at the time of surgery. His pathology was consistent with diverticulosis with diverticulitis and perforation. Patient remained on intravenous antibiotics. He was instructed regarding care of his surgical stoma. Patient made excellent progress with very little discomfort. He was rapidly advanced back to a regular diet as bowel function returned. He was discharged home on 05/15/2017 in good condition. FINAL DIAGNOSES: 1. Perforated sigmoid diverticulitis. 2. Hypothyroidism. 3. Hypertension. 4. History of malignant hyperthermia. PROCEDURE PERFORMED: Laparoscopic sigmoid colectomy with end colostomy and oversewing of the rectosigmoid stump. DISPOSITION: He was discharged home on a regular diet. He was advised that he could shower ad ina. He was advised to avoid any strenuous physical activity or lifting greater than 25 or 30 pounds. He was to follow up in the office on 05/31/2017 at 10:45 a.m.. He was not provided a prescription for any pain relievers, as he had not been taking any in the hospital. He was to call for any problems such as fevers or chills or increasing abdominal pain. He was provided a public health referral for assistance in managing his colostomy.
== END 2017-05-15 12:12 | disposition home health service (06) | DRG 330 ==
LOC: M ED 07:44 → M ED INP 13:30 → M ED 14:05 → M MSPAV 19:47
PROVIDERS: ADMIT Surgery; ATTEND Surgery
PROC: 0D1N4Z4 Bypass Sigmoid Colon to Cutaneous, Percutaneous Endoscopic Approach (ICD-10-PCS; 2017-05-10)
PROC: 0DBN4ZZ Excision of Sigmoid Colon, Percutaneous Endoscopic Approach (ICD-10-PCS; principal; 2017-05-10 13:17)
DX: K57.20 Diverticulitis of large intestine with perforation and abscess without bleeding (principal); Z79.899 Other long term (current) drug therapy; I10 Essential (primary) hypertension; E03.9 Hypothyroidism, unspecified

== ENCOUNTER 2017-08-10 06:25 | Day surgery (SDC) | payer MEDICARE ==
[2017-08-10] MEDS: LR 500 ML IV (06:30)
[2017-08-10] MEDS ORDERED: LIDOCAINE 2% INJ 100 MG/5 ML SDV (FOR ANES.) As Ordered (07:41)
[2017-08-10] MEDS ORDERED: PROPOFOL 500 MG/50 ML VIAL As Ordered (07:41)
== END 2017-08-10 08:33 | disposition home or self-care (01) ==
LOC: M OPP 06:25
DX: Z01.818 Encounter for other preprocedural examination (principal); K57.30 Diverticulosis of large intestine without perforation or abscess without bleeding; I10 Essential (primary) hypertension; E03.9 Hypothyroidism, unspecified; K21.9 Gastro-esophageal reflux disease without esophagitis; T88.3XXA Malignant hyperthermia due to anesthesia, initial encounter
CPT/HCPCS: 44388

== ENCOUNTER → 2017-08-24 | Outpatient (CLI) | payer MEDICARE | LOC: M EKG 09:35 | DX: I10 Essential (primary) hypertension (principal) ==

== ENCOUNTER 2017-08-27 05:50 | Inpatient (IN) | payer MEDICARE ==
[2017-08-27] MEDS ORDERED: ERTAPENEM 1 GM INJ (INVanz) (J1335) As Ordered (06:19)
[2017-08-27] MEDS: ALVIMOPAN 12 MG CAPSULE (ENTEREG) PO ×2 (06:31→21:07)
[2017-08-27] MEDS: LR 1,000 ML IV ×3 (06:33→12:30)
[2017-08-27] MEDS ORDERED: fentaNYL 100 MCG/2 ML INJECTION (J3010) As Ordered ×4 (07:10→11:04)
[2017-08-27] MEDS ORDERED: REMIFENTANIL 1MG 3ML VIAL As Ordered ×3 (07:49→11:05)
[2017-08-27] MEDS: ERTAPENEM SODIUM 1 GM in NS 50 ML IV (07:58)
[2017-08-27] MEDS ORDERED: PROPOFOL 200 MG/20 ML VIAL As Ordered ×11 (08:00→10:21)
[2017-08-27] MEDS ORDERED: LIDOCAINE 2% INJ 100 MG/5 ML SDV (FOR ANES.) As Ordered (08:00)
[2017-08-27] MEDS ORDERED: ROCURONIUM BROMIDE 50 MG/5 ML VIAL As Ordered ×2 (08:00→09:06)
[2017-08-27] MEDS ORDERED: ONDANSETRON 4MG/2ML VIAL (J2405) As Ordered (08:00)
[2017-08-27] MEDS ORDERED: dexameTHASONE 4 MG/ML 1ML VIAL (J1100) As Ordered (08:00)
[2017-08-27] MEDS ORDERED: ePHEDrine INJ 50 MG/ML VIAL As Ordered (08:00)
[2017-08-27] MEDS ORDERED: PHENYLEPHRINE INJ 10MG/ML VIAL (J2370) As Ordered (08:06)
[2017-08-27] MEDS: BUPIVACAINE HCL 0.25% 30 ML VIAL As Ordered (08:24)
[2017-08-27] MEDS ORDERED: MIDAZOLAM INJ 2 MG/2 ML VIAL (J2250) As Ordered (09:25)
[2017-08-27] MEDS ORDERED: PROPOFOL 500 MG/50 ML VIAL As Ordered (09:36)
[2017-08-27] MEDS ORDERED: KETOROLAC 60 MG/2 ML VIAL (J1885) As Ordered (10:36)
[2017-08-27] MEDS ORDERED: HYDROmorphone HCL 2 MG/ML 1ML VIAL (J1170) As Ordered (11:50)
[2017-08-27] MEDS ORDERED: GLYCOPYRROLATE INJ 0.2 MG/ML 2 ML VIAL As Ordered (11:58)
[2017-08-27] MEDS ORDERED: NEOSTIGMINE 10 MG/10 ML VIAL (J2710) As Ordered (11:58)
[2017-08-27] MEDS ORDERED: METOCLOPRAMIDE INJ 10MG/2ML VIAL (J2765) IV ×2 (12:00→12:30)
[2017-08-27] MEDS ORDERED: MORPHINE 2 MG/ML 1ML SYRINGE IV (12:00)
[2017-08-27] MEDS ORDERED: ONDANSETRON 4MG/2ML VIAL (J2405) IV ×2 (12:00→12:30)
[2017-08-27] MEDS ORDERED: ACETAMINOPHEN TAB 650MG DOSE (2X325MG) PO (12:00)
[2017-08-27] MEDS ORDERED: fentaNYL 100 MCG/2 ML INJECTION (J3010) IV (12:30)
[2017-08-27] MEDS ORDERED: MORPHINE 10 MG/ML 1ML VIAL IV (12:30)
[2017-08-27] MEDS ORDERED: PERCOCET 5MG/325MG TAB PO (12:30)
[2017-08-27] MEDS: KETOROLAC 30 MG/ML VIAL (J1885) IV ×2 (17:09→23:19)
[2017-08-27] MEDS: BISOPROLOL FUMARATE 5 MG TAB PO (21:08)
[2017-08-27] MEDS: ENOXAPARIN 40 MG/0.4 ML SYRINGE (J1650) SC (21:08)
[2017-08-27] MEDS: amLODIPine 5 MG TAB PO (21:08)
[2017-08-28] MEDS: LEVOTHYROXINE 100MCG TABLET (0.1MG) PO (05:39)
[2017-08-28] MEDS: KETOROLAC 30 MG/ML VIAL (J1885) IV (05:39)
[2017-08-28] MEDS: LR 1,000 ML IV (05:40)
[2017-08-28 06:12] LABS: BASO % 0.4 % (0.0-1.0); EOS % 0.4 % (0.0-3.0); HEMATOCRIT 36.1 % (42.0-52.0); HEMOGLOBIN 12.2 g/dl (14.0-18.0); IMMATURE GRANULOCYTE % 0.4 % (0-0); LYMPH # 0.9 10^3/uL (1.5-4.5); LYMPH % 11.6 % (24.0-44.0); MEAN CORPUSCULAR HGB CONC 33.8 g/dl (32.0-36.5); MEAN CORPUSCULAR VOLUME 88.7 fl (80.0-96.0); MONO # 0.6 10^3/uL (0.0-0.8); MONO % 7.4 % (0.0-5.0); NEUTROPHILS # 6.1 10^3/uL (1.8-7.7); NEUTROPHILS % 79.8 % (36.0-66.0); PLATELET COUNT, AUTOMATED 151 10^3/uL (150-450); RED BLOOD COUNT 4.07 10^6/uL (4.30-6.10); RED CELL DISTRIBUTION WIDTH 12.9 % (11.5-14.5); WHITE BLOOD COUNT 7.6 10^3/uL (4.0-10.0)
[2017-08-28 06:35] LABS: ANION GAP 9 MEQ/L (8-16); BLOOD UREA NITROGEN 20 MG/DL (7-18); CALCIUM LEVEL 8.1 MG/DL (8.8-10.2); CARBON DIOXIDE LEVEL 25 MEQ/L (21-32); CHLORIDE LEVEL 108 MEQ/L (98-107); CREATININE FOR GFR 1.45 MG/DL (0.70-1.30); GLOMERULAR FILTRATION RATE 50.8 (>42); GLUCOSE, FASTING 101 MG/DL (83-110); POTASSIUM SERUM 3.8 MEQ/L (3.5-5.1); SODIUM LEVEL 142 MEQ/L (136-145)
[2017-08-28] MEDS: ALVIMOPAN 12 MG CAPSULE (ENTEREG) PO ×2 (10:03→21:42)
[2017-08-28] MEDS: HYDROCHLOROthiazide 6.25MG PER 1/4TAB PO (12:48)
[2017-08-28] MEDS: ENOXAPARIN 40 MG/0.4 ML SYRINGE (J1650) SC (21:43)
[2017-08-28] MEDS: amLODIPine 5 MG TAB PO (21:43)
[2017-08-28] MEDS: BISOPROLOL FUMARATE 5 MG TAB PO (21:43)
[2017-08-28] MEDS: NORCO, ANEXSIA 5/325MG TABLET (HYDROcodone/ACETAMINOPHEN) PO (21:45)
[2017-08-29] MEDS: LEVOTHYROXINE 100MCG TABLET (0.1MG) PO (06:04)
[2017-08-29] MEDS: NORCO, ANEXSIA 5/325MG TABLET (HYDROcodone/ACETAMINOPHEN) PO (06:05)
[2017-08-29] MEDS: HYDROCHLOROthiazide 6.25MG PER 1/4TAB PO (07:47)
[2017-08-29] MEDS: ALVIMOPAN 12 MG CAPSULE (ENTEREG) PO ×2 (07:47→22:26)
[2017-08-29] MEDS: BISOPROLOL FUMARATE 5 MG TAB PO (22:26)
[2017-08-29] MEDS: amLODIPine 5 MG TAB PO (22:27)
[2017-08-29] MEDS: ENOXAPARIN 40 MG/0.4 ML SYRINGE (J1650) SC (22:27)
[2017-08-30] MEDS: LEVOTHYROXINE 100MCG TABLET (0.1MG) PO (06:50)
[2017-08-30 07:14] LABS: BASO % 0.7 % (0.0-1.0); EOS # 0.3 10^3/uL (0.0-0.50); EOS % 5.8 % (0.0-3.0); HEMOGLOBIN 12.8 g/dl (14.0-18.0); IMMATURE GRANULOCYTE % 0.2 % (0-0); LYMPH # 0.9 10^3/uL (1.5-4.5); LYMPH % 15.4 % (24.0-44.0); MEAN CORPUSCULAR HEMOGLOBIN 30.2 pg (27.0-33.0); MEAN CORPUSCULAR HGB CONC 33.7 g/dl (32.0-36.5); MEAN CORPUSCULAR VOLUME 89.6 fl (80.0-96.0); MONO # 0.4 10^3/uL (0.0-0.8); MONO % 7.4 % (0.0-5.0); NEUTROPHILS # 4.1 10^3/uL (1.8-7.7); NEUTROPHILS % 70.5 % (36.0-66.0); PLATELET COUNT, AUTOMATED 154 10^3/uL (150-450); RED BLOOD COUNT 4.24 10^6/uL (4.30-6.10); RED CELL DISTRIBUTION WIDTH 12.8 % (11.5-14.5); WHITE BLOOD COUNT 5.9 10^3/uL (4.0-10.0)
[2017-08-30 07:41] LABS: ALBUMIN/GLOBULIN RATIO 0.86 (1.00-1.93); ALKALINE PHOSPHATASE 64 U/L (45-117); ALT/SGPT 15 U/L (12-78); ANION GAP 6 MEQ/L (8-16); AST/SGOT 17 U/L (7-37); BILIRUBIN,TOTAL 0.6 MG/DL (0.2-1.0); BLOOD UREA NITROGEN 17 MG/DL (7-18); CALCIUM LEVEL 8.7 MG/DL (8.8-10.2); CARBON DIOXIDE LEVEL 31 MEQ/L (21-32); CHLORIDE LEVEL 106 MEQ/L (98-107); CREATININE FOR GFR 1.36 MG/DL (0.70-1.30); GLOMERULAR FILTRATION RATE 54.7 (>42); GLUCOSE, FASTING 87 MG/DL (83-110); POTASSIUM SERUM 3.7 MEQ/L (3.5-5.1); SODIUM LEVEL 143 MEQ/L (136-145); TOTAL PROTEIN 6.5 GM/DL (6.4-8.2)
[2017-08-30] MEDS: HYDROCHLOROthiazide 6.25MG PER 1/4TAB PO (09:00)
[2017-08-30] MEDS: ALVIMOPAN 12 MG CAPSULE (ENTEREG) PO (09:00)
== END 2017-08-30 10:00 | disposition home or self-care (01) | DRG 346 ==
LOC: M OR 05:50 → M PED 08-29 20:03 → M MSPAV 13:27
PROC: 0DSM4ZZ Reposition Descending Colon, Percutaneous Endoscopic Approach (ICD-10-PCS; principal; 2017-08-27 07:29)
PROC: 0WQF4ZZ Repair Abdominal Wall, Percutaneous Endoscopic Approach (ICD-10-PCS; 2017-08-27 07:29)
DX: Z43.3 Encounter for attention to colostomy (principal); K57.30 Diverticulosis of large intestine without perforation or abscess without bleeding; I10 Essential (primary) hypertension; E03.9 Hypothyroidism, unspecified; Z79.899 Other long term (current) drug therapy

== ENCOUNTER → 2021-06-02 | Outpatient (CLI) | payer MEDICARE ==
[~2021-06-02] MED LIST changes: +AMLO1TAB24 PO; -AMLO5TAB2 PO; +ASPI-1 PO; -ASPI325T PO; +ISOVUE-370 76% 100ML VIAL As Ordered ONE
--- NOTE | 2021-06-02 16:38 | REP ---
INDICATION: HEMATURIA. COMPARISON: 04/23/2016 and 05/10/2017 both without contrast TECHNIQUE: Standard helical technique before and after the intravenous administration of 100 cc Isovue 370. FINDINGS: The lung bases are clear and unchanged. The pre contrast enhanced portion examination again shows a patent splenic densities to be within normal limits. There are hepatic cysts and calcified granulomatous changes status quo. There are no choleliths. Multiple bilateral low-density renal lesions are noted status quo. There are no urinary bladder calcifications. 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 The contrast-enhanced portion examination shows no evidence of an enhancing hepatic lesion. The spleen, pancreas, and adrenal glands, are within normal limits. There are 4 well-demarcated low-density lesions in the right kidney all having water density Hounsfield unit readings and none having measurable contrast-enhancement. There are 3 dominant low-density lesions in the left kidney also having no measurable contrast-enhancement there are no septations or mural nodules. The largest on the left measures 5.5 cm and the largest on the right measures 2.1 cm. The abdominal aorta and para-aortic regions are within normal limits. There is no evidence of free fluid or free air. The bowel loops and the mesenteries are within normal limits. Postop changes are seen in the sigmoid colon and there is sigmoid colon diverticulosis. There is no evidence of a mass or adenopathy. Delayed imaging shows complete opacification of both right and left renal collecting systems. The contrast pacified portion of the urinary bladder shows no evidence of an intraluminal filling defect. Bone window technique throughout the examination shows rather advanced appearing lumbar spine degenerative changes and discogenic changes. IMPRESSION: 1. Bilateral simple Bosniak class 1 renal cysts as described above. 2. Stable hepatic cyst. 3. Other findings as described above. <Electronically signed by Juliano Arango > 06/02/21 [id number]
== END ==
LOC: M RAD 14:17
PROVIDERS: ATTEND Internal Medicine Nephrology
DX: R31.9 Hematuria, unspecified (principal); K76.89 Other specified diseases of liver; N28.1 Cyst of kidney, acquired
CPT/HCPCS: 74178; Q9967

== ENCOUNTER → 2022-01-07 | Outpatient (CLI) | payer MEDICARE ==
[~2022-01-07] MED LIST changes: +BISO1TAB18 PO; -BISO5TAB2 PO; -ISOVUE-370 76% 100ML VIAL As Ordered ONE
[2022-01-07 14:05] LABS: BASO % 0.7 % (0.0-1.0); EOS # 0.1 10^3/uL (0.0-0.5); EOS % 2.3 % (0.0-3.0); HEMATOCRIT 40.7 % (42.0-52.0); HEMOGLOBIN 13.4 g/dl (13.5-17.5); LYMPH # 1.1 10^3/uL (1.5-5.0); LYMPH % 19.3 % (24.0-44.0); MEAN CORPUSCULAR HEMOGLOBIN 31.4 pg (27.0-33.0); MEAN CORPUSCULAR HGB CONC 32.9 g/dl (32.0-36.5); MEAN CORPUSCULAR VOLUME 95.3 fl (80.0-96.0); MONO # 0.4 10^3/uL (0.0-0.8); MONO % 6.8 % (2.0-8.0); NEUTROPHILS % 70.5 % (36.0-66.0); PLATELET COUNT, AUTOMATED 176 10^3/uL (150-450); RED BLOOD COUNT 4.27 10^6/uL (4.30-6.10); WHITE BLOOD COUNT 5.6 10^3/uL (4.0-10.0)
[2022-01-07 14:21] LABS: ALBUMIN 3.4 GM/DL (3.2-5.2); BILIRUBIN,TOTAL 0.3 MG/DL (0.2-1.0); CALCIUM LEVEL 9.4 MG/DL (8.8-10.2); CREATININE FOR GFR 1.62 MG/DL (0.70-1.30); GLOMERULAR FILTRATION RATE 44.2 (>42); POTASSIUM SERUM 3.7 MEQ/L (3.5-5.1); TOTAL PROTEIN 7.2 GM/DL (6.4-8.2)
== END ==
LOC: M RAD 12:54
PROVIDERS: ATTEND Family Medicine
DX: R60.0 Localized edema (principal)

== ENCOUNTER → 2022-01-28 | Outpatient (CLI) | payer MEDICARE | LOC: M ADAMS 14:53 | PROVIDERS: ATTEND Family Medicine | DX: M17.0 Bilateral primary osteoarthritis of knee (principal); M25.50 Pain in unspecified joint ==

== ENCOUNTER → 2022-03-17 | Outpatient (REF) | payer MEDICARE ==
[2022-03-17 14:25] LABS: FREE T4 1.3 NG/DL (0.76-1.46); THYROID STIMULATING HORMONE 0.864 uIU/ML (0.358-3.740)
[2022-03-18 10:10] LABS: TESTOSTERONE FREE (DIRECT) 10.9 pg/mL (6.6-18.1)
== END ==
LOC: M SFHCADAM 08:48
PROVIDERS: ATTEND Family Medicine
DX: E03.9 Hypothyroidism, unspecified (principal); R53.83 Other fatigue

== ENCOUNTER → 2022-04-17 | Outpatient (REF) | payer MEDICARE ==
[2022-04-17 15:32] LABS: BASO % 0.7 % (0.0-1.0); EOS # 0.1 10^3/uL (0.0-0.5); EOS % 2.3 % (0.0-3.0); HEMATOCRIT 42.1 % (42.0-52.0); HEMOGLOBIN 13.8 g/dl (13.5-17.5); LYMPH # 1.3 10^3/uL (1.5-5.0); LYMPH % 20.4 % (24.0-44.0); MEAN CORPUSCULAR HGB CONC 32.8 g/dl (32.0-36.5); MEAN CORPUSCULAR VOLUME 94.6 fl (80.0-96.0); MONO # 0.4 10^3/uL (0.0-0.8); MONO % 6.8 % (2.0-8.0); NEUTROPHILS # 4.3 10^3/uL (1.5-8.5); NEUTROPHILS % 69.6 % (36.0-66.0); PLATELET COUNT, AUTOMATED 178 10^3/uL (150-450); RED BLOOD COUNT 4.45 10^6/uL (4.30-6.10); WHITE BLOOD COUNT 6.1 10^3/uL (4.0-10.0)
[2022-04-17 16:15] LABS: ALBUMIN 3.8 GM/DL (3.2-5.2); BILIRUBIN,TOTAL 0.4 MG/DL (0.2-1.0); CALCIUM LEVEL 9.3 MG/DL (8.8-10.2); CREATININE FOR GFR 1.66 MG/DL (0.70-1.30); POTASSIUM SERUM 3.8 MEQ/L (3.5-5.1); TOTAL PROTEIN 7.4 GM/DL (6.4-8.2)
== END ==
LOC: M SFHCADAM 13:52
PROVIDERS: ATTEND Family Medicine
DX: Z01.812 Encounter for preprocedural laboratory examination (principal); K22.10 Ulcer of esophagus without bleeding; E03.9 Hypothyroidism, unspecified; I10 Essential (primary) hypertension; Z15.89 Genetic susceptibility to other disease

== ENCOUNTER → 2022-06-12 | Outpatient (CLI) | payer MEDICARE | LOC: M PLAIMG 12:32 | PROVIDERS: ATTEND Physician Assistant | DX: M47.896 Other spondylosis, lumbar region (principal); M51.36 Other intervertebral disc degeneration, lumbar region; M51.26 Other intervertebral disc displacement, lumbar region ==

== ENCOUNTER → 2022-06-16 | Outpatient (CLI) | payer MEDICARE ==
[2022-06-16 09:56] LABS: BASO # 0.1 10^3/uL (0.0-0.2); BASO % 0.8 % (0.0-1.0); EOS # 0.1 10^3/uL (0.0-0.5); EOS % 2.2 % (0.0-3.0); HEMATOCRIT 44.3 % (42.0-52.0); HEMOGLOBIN 14.3 g/dl (13.5-17.5); MEAN CORPUSCULAR HEMOGLOBIN 30.9 pg (27.0-33.0); MEAN CORPUSCULAR HGB CONC 32.3 g/dl (32.0-36.5); MEAN CORPUSCULAR VOLUME 95.7 fl (80.0-96.0); MONO # 0.5 10^3/uL (0.0-0.8); MONO % 8.3 % (2.0-8.0); NEUTROPHILS # 4.5 10^3/uL (1.5-8.5); NEUTROPHILS % 72.5 % (36.0-66.0); PLATELET COUNT, AUTOMATED 175 10^3/uL (150-450); RED BLOOD COUNT 4.63 10^6/uL (4.30-6.10); WHITE BLOOD COUNT 6.3 10^3/uL (4.0-10.0)
[2022-06-16 10:38] LABS: ERYTHROCYTE SEDIMENTATION RATE 14 mm/hr (0-20)
[2022-06-16 11:24] LABS: C REACTIVE PROTEIN QUANTITATIV 0.62 MG/DL (0.00-0.30)
[2022-06-17 09:15] LABS: CREATININE FOR GFR 1.69 MG/DL (0.70-1.30); GLOMERULAR FILTRATION RATE 42.1 (>42)
== END ==
LOC: M LAB 08:32
PROVIDERS: ATTEND Orthopaedic Surgery
DX: M17.12 Unilateral primary osteoarthritis, left knee (principal); M47.896 Other spondylosis, lumbar region; M51.36 Other intervertebral disc degeneration, lumbar region

== ENCOUNTER → 2022-06-17 | Outpatient (CLI) | payer MEDICARE ==
[~2022-06-17] MED LIST changes: +PROHANCE 279.3MG/ML 5ML VIAL As Ordered ONE
== END ==
LOC: M RAD 10:45
PROVIDERS: ATTEND Physician Assistant
DX: M47.896 Other spondylosis, lumbar region (principal); M17.12 Unilateral primary osteoarthritis, left knee; M16.0 Bilateral primary osteoarthritis of hip; M51.26 Other intervertebral disc displacement, lumbar region
CPT/HCPCS: 72158; A9576

== ENCOUNTER → 2022-12-29 | Outpatient (REF) | payer MEDICARE ==
[~2022-12-29] MED LIST changes: -PROHANCE 279.3MG/ML 5ML VIAL As Ordered ONE
[2022-12-29 18:34] LABS: PERCENT SATURATION 23.2 % (19.7-50.0)
== END ==
LOC: M LAB REF 17:25
PROVIDERS: ATTEND Internal Medicine Nephrology
DX: D50.9 Iron deficiency anemia, unspecified (principal)

== ENCOUNTER → 2023-03-25 | Outpatient (CLI) | payer MEDICARE | LOC: M ADAMS 11:21 | PROVIDERS: ATTEND Physician Assistant | DX: M19.032 Primary osteoarthritis, left wrist (principal); M19.042 Primary osteoarthritis, left hand ==

== ENCOUNTER → 2023-03-25 | Outpatient (REF) | payer MEDICARE ==
[2023-03-25 13:12] LABS: BASO # 0.1 10^3/uL (0.0-0.2); BASO % 0.9 % (0.0-1.0); EOS # 0.1 10^3/uL (0.0-0.5); EOS % 2.4 % (0.0-3.0); HEMATOCRIT 42.2 % (42.0-52.0); HEMOGLOBIN 13.6 g/dl (13.5-17.5); LYMPH # 1.1 10^3/uL (1.5-5.0); MEAN CORPUSCULAR HEMOGLOBIN 30.4 pg (27.0-33.0); MEAN CORPUSCULAR HGB CONC 32.2 g/dl (32.0-36.5); MEAN CORPUSCULAR VOLUME 94.2 fl (80.0-96.0); MONO # 0.5 10^3/uL (0.0-0.8); MONO % 8.8 % (2.0-8.0); NEUTROPHILS % 68.6 % (36.0-66.0); PLATELET COUNT, AUTOMATED 169 10^3/uL (150-450); RED BLOOD COUNT 4.48 10^6/uL (4.30-6.10); WHITE BLOOD COUNT 5.8 10^3/uL (4.0-10.0)
[2023-03-25 13:43] LABS: ALBUMIN 3.7 G/DL (3.2-5.2); ALKALINE PHOSPHATASE 89 U/L (46-116); ALT/SGPT 12 U/L (7.0-40); AST/SGOT < 8 U/L (<34); BILIRUBIN,TOTAL 0.6 MG/DL (0.3-1.2); BLOOD UREA NITROGEN 21 MG/DL (9-23); CALCIUM LEVEL 9.2 MG/DL (8.3-10.6); CARBON DIOXIDE LEVEL 28 MMOL/L (20-31); CHLORIDE LEVEL 103 MMOL/L (98-107); CHOLESTEROL LEVEL 151 MG/DL (<200); CHOLESTEROL RISK RATIO 4.27 (<5); CREATININE FOR GFR 1.67 MG/DL (0.70-1.30); FREE T4 1.47 NG/DL (0.89-1.76); GLOMERULAR FILTRATION RATE 42.6 (>42); GLUCOSE, FASTING 85 MG/DL (74-106); HDL CHOLESTEROL 35.3 MG/DL (>40); LDL CHOLESTEROL 85.7 MG/DL (<100); NON-HDL-C 115.7 MG/DL; SODIUM LEVEL 140 MMOL/L (136-145); THYROID STIMULATING HORMONE 2.859 uIU/ML (0.55-4.78); TRIGLYCERIDES LEVEL 150 MG/DL (<150)
== END ==
LOC: M SFHCADAM 11:08
PROVIDERS: ATTEND Physician Assistant
DX: E03.9 Hypothyroidism, unspecified (principal); I10 Essential (primary) hypertension; Z13.220 Encounter for screening for lipoid disorders; Z12.5 Encounter for screening for malignant neoplasm of prostate
CPT/HCPCS: 80053; 80061; 84439; 84443; 85025; G0103

== ENCOUNTER 2023-06-09 06:28 | Day surgery (SDC) | payer MEDICARE ==
[~2023-06-09] VITALS: Ht 177.8 cm; Wt 107.2 kg
[2023-06-09] MEDS ORDERED: LIDOCAINE W/EPINEPHRINE 1% 20ML VIAL XX ONE (07:10)
[2023-06-09] MEDS ORDERED: SODIUM BICARBONATE 8.4% INJ 50MEQ 50ML VIAL XX ONE (07:10)
[2023-06-09] MEDS ORDERED: BACITRACIN OINTMENT 30GM TUBE As Ordered ONE (08:22)
[2023-06-09 08:33] VITALS: BP 132/64; TEMP 98.1; O2SAT 95
[2023-06-09 12:31] LABS: CRYSTALS, BODY FLUID NONE SEEN (NONE SEEN); SOURCE, BODY FLUID CRYSTALS LT WRIST
== END 2023-06-09 08:55 | disposition home or self-care (01) ==
LOC: M SDC 06:28
PROVIDERS: ATTEND Orthopaedic Surgery Hand Surgery
DX: M65.4 Radial styloid tenosynovitis [de Quervain] (principal); I10 Essential (primary) hypertension; E03.9 Hypothyroidism, unspecified; Z79.899 Other long term (current) drug therapy; Z79.890 Hormone replacement therapy; Z93.3 Colostomy status
CPT/HCPCS: 25000; 87070; 87205; 89060; J0665

== ENCOUNTER → 2024-02-03 | Outpatient (CLI) | payer MEDICARE | LOC: M ADAMS 09:48 | PROVIDERS: ATTEND Family Medicine | DX: R06.00 Dyspnea, unspecified (principal) ==

== ENCOUNTER → 2024-02-03 | Outpatient (REF) | payer MEDICARE ==
[2024-02-03 13:59] LABS: ALBUMIN 3.6 G/DL (3.2-5.2); BILIRUBIN,TOTAL 0.5 MG/DL (0.3-1.2); CALCIUM LEVEL 8.8 MG/DL (8.3-10.6); CREATININE FOR GFR 1.53 MG/DL (0.70-1.30); POTASSIUM SERUM 3.8 MMOL/L (3.5-5.1); TOTAL PROTEIN 6.8 G/DL (5.7-8.2)
[2024-02-03 14:00] LABS: THYROID STIMULATING HORMONE 1.346 uIU/ML (0.55-4.78)
[2024-02-03 14:01] LABS: FREE T4 1.39 NG/DL (0.89-1.76)
== END ==
LOC: M SFHCADAM 09:36
PROVIDERS: ATTEND Family Medicine
DX: R06.00 Dyspnea, unspecified (principal); R60.0 Localized edema

== ENCOUNTER → 2024-02-22 | Outpatient (CLI) | payer MEDICARE | LOC: M PLAIMG 09:33 | PROVIDERS: ATTEND Family Medicine | DX: R00.1 Bradycardia, unspecified (principal); I27.20 Pulmonary hypertension, unspecified; I35.8 Other nonrheumatic aortic valve disorders; I51.7 Cardiomegaly ==

== ENCOUNTER → 2024-03-10 | Outpatient (CLI) | payer MEDICARE | LOC: M RAD 07:02 | PROVIDERS: ATTEND Family Medicine | DX: R68.81 Early satiety (principal) | CPT/HCPCS: 78264; A9541 ==

== ENCOUNTER → 2024-03-30 | Outpatient (CLI) | payer MEDICARE ==
[~2024-03-30] MED LIST changes: +BARIUM SULFATE 700 MG TABLET (E-Z-DISK) As Ordered ONE; +E-Z-PAQUE 96% w/w SUSP 176GM BTL As Ordered ONE; +VARIBAR NECTAR 40% w/v 240ML SUSP BTL As Ordered ONE; +VARIBAR PUDDING 40% w/v 230ML TUBE As Ordered ONE
== END ==
LOC: M RAD 11:21
PROVIDERS: ATTEND Family Medicine
DX: R05.3 Chronic cough (principal)

== ENCOUNTER → 2025-03-26 | Outpatient (CLI) | payer MEDICARE ==
[~2025-03-26] MED LIST changes: -BARIUM SULFATE 700 MG TABLET (E-Z-DISK) As Ordered ONE; -E-Z-PAQUE 96% w/w SUSP 176GM BTL As Ordered ONE; -VARIBAR NECTAR 40% w/v 240ML SUSP BTL As Ordered ONE; -VARIBAR PUDDING 40% w/v 230ML TUBE As Ordered ONE
== END ==
LOC: M PLAIMG 14:42
PROVIDERS: ATTEND Physician Assistant
DX: G89.29 Other chronic pain (principal); M25.561 Pain in right knee; M17.11 Unilateral primary osteoarthritis, right knee; M79.89 Other specified soft tissue disorders; M11.261 Other chondrocalcinosis, right knee; M25.461 Effusion, right knee

== ENCOUNTER 2025-04-26 11:32 | Emergency (ER) | payer MEDICARE ==
[~2025-04-26] VITALS: Ht 180.3 cm; Wt 109.0 kg
[2025-04-26 13:06] LABS: BASO # 0.1 10^3/uL (0.0-0.2); BASO % 0.7 % (0.0-1.0); EOS # 0.1 10^3/uL (0.0-0.5); EOS % 1.6 % (0.0-3.0); LYMPH # 1.1 10^3/uL (1.5-5.0); LYMPH % 16.3 % (24.0-44.0); MONO # 0.5 10^3/uL (0.0-0.8); MONO % 7.1 % (2.0-8.0); NEUTROPHILS # 5.1 10^3/uL (1.5-8.5); NEUTROPHILS % 74.2 % (36.0-66.0); PLATELET COUNT, AUTOMATED 181 10^3/uL (150-450)
[2025-04-26 13:24] LABS: INR 1.02
[2025-04-26 13:38] LABS: CALCIUM LEVEL 8.9 MG/DL (8.3-10.6); CARBON DIOXIDE LEVEL 26.0 MMOL/L (20-31); CHLORIDE LEVEL 105.0 MMOL/L (98-107); CREATININE FOR GFR 1.77 MG/DL (0.70-1.30); GLOMERULAR FILTRATION RATE 38.4 (>35); POTASSIUM SERUM 4.0 MMOL/L (3.5-5.1); SODIUM LEVEL 138.0 MMOL/L (136-145)
[2025-04-26] MEDS ORDERED: ISOVUE-370 76% 100 ML VIAL As Ordered ONE (14:00)
[2025-04-26] MEDS: NS 500 ML IV ONE (14:12)
[2025-04-26 16:24] VITALS: BP 146/79; TEMP 97.2; O2SAT 97
== END 2025-04-26 16:32 | disposition home or self-care (01) ==
LOC: M ED 12:13
DX: M71.21 Synovial cyst of popliteal space [Baker], right knee (principal); M25.761 Osteophyte, right knee; M11.261 Other chondrocalcinosis, right knee; I10 Essential (primary) hypertension; Z88.6 Allergy status to analgesic agent; Z79.899 Other long term (current) drug therapy; Z96.652 Presence of left artificial knee joint; M17.11 Unilateral primary osteoarthritis, right knee
CPT/HCPCS: 73701; 80048; 85025; 85610; 85730; 93971; 96360; 99284; Q9967